=== PATIENT | male | born 1980 | race Hispanic/Latino ===

== ENCOUNTER 2016-07-03 03:25 | Emergency (ER) | payer OTHER ==
[~2016-07-03] VITALS: Ht 165.1 cm; Wt 74.8 kg
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
[2016-07-03 03:36] VITALS: BP 125/89
== END 2016-07-03 04:17 | disposition admitted as inpatient to this hospital (09) ==
LOC: ERH 03:25
DX: M54.5 Low back pain (principal); V49.9XXA Car occupant (driver) (passenger) injured in unspecified traffic accident, initial encounter; F10.129 Alcohol abuse with intoxication, unspecified
CPT/HCPCS: 80307; 81001; 99281; G0480